=== PATIENT | female | born 1960 | race Hispanic/Latino ===

== ENCOUNTER 2016-08-08 09:52 | Day surgery (SDC) | payer OTHER ==
[2016-08-08] MEDS ORDERED: Lactated Ringer's 500 ML IV ONE (10:44)
[2016-08-08] MEDS ORDERED: Midazolam 2 MG/2 ML VIAL ONE (11:13)
[2016-08-08] MEDS ORDERED: Propofol 10 mg/ml Inj (20 ML) ONE (11:13)
[2016-08-08 11:53] VITALS: TEMP 98
[2016-08-08 11:54] VITALS: BP 104/57; PULSE 79; RESP 12; O2SAT 100
== END 2016-08-08 12:22 | disposition home or self-care (01) ==
LOC: H.ENDO 09:52
PROVIDERS: ATTEND Internal Medicine Gastroenterology
DX: Z12.11 Encounter for screening for malignant neoplasm of colon (principal); K64.8 Other hemorrhoids; K30 Functional dyspepsia; K31.9 Disease of stomach and duodenum, unspecified; K25.9 Gastric ulcer, unspecified as acute or chronic, without hemorrhage or perforation; K44.9 Diaphragmatic hernia without obstruction or gangrene